=== PATIENT | male | born 1960 | race Caucasian/White ===

== ENCOUNTER → 2017-06-23 | Outpatient (CLI) | payer BC ==
[~2017-06-23] MED LIST: BUPIVACAINE MPF 0.25% 10 ML VIAL. ONE; COLC1TAB PO; CYCL10TA2 PO; IOHEXOL 180 MG/ML 10 ML VIAL. ONE; PANT20TA2 PO; TRAM50TA PO; ZOLP5TAB PO; methylPREDNISolone ACETATE 40 MG/ML VIAL. ONE; methylPREDNISolone ACETATE 80 MG/ML VIAL. ONE
--- NOTE | 2017-06-23 18:20 | PAIN ---
DATE OF SERVICE: 06/23/2017 CHIEF COMPLAINT: Low back pain. HISTORY OF PRESENT ILLNESS: This is a 57-year-old male with history of pain in the low back bilaterally for about 7 years. The patient reports that over the past 5 years, it has been much worse and over the last 6 months or so, it is becoming much more noticeable and annoying with the pain in the low back bilaterally, not radiating to lower extremity significantly but in both of the sides of low back, right essentially equal to left. Twisting makes his legs feel weak, but he has not had any falls or any loss of motor function. The patient is on his feet most of his day, lifting items at his job, working and he is wearing a back brace to do so. The patient reports the pain is constant, sharp, throbbing, stabbing, shooting, radiating into the legs occasionally, but mostly in the low back. The patient reports it awakens him from sleep about twice a night, does not affect her bowel or bladder control, but does affect his ability to walk, not using any assistive devices, however, besides the low back brace, which he feels does help him to some extent. The patient has had some physical therapy and exercise in the past, doing exercises currently, also had epidural shots x 3 in an outside facility in 2014, which seemed to help initially, but did not last for more than about a month. The patient reports no loss of motor function, significant fatigability with his back and his legs when he has been on his feet working. The patient rates his disability rating from 0 to 10, 10 being the worst; a 10 with family and home responsibilities, recreation, social activity, occupation and sexual behavior; 5 with self-care and 5 with life support activities. The patient has tried tramadol, which helps, but only a small amount about 10%; also [id number] ibuprofen and Tylenol, which also helps but only very minimally. The patient did have an MRI scan of the lumbar spine showing mild spinal canal stenosis at L1-L2 secondary to disk herniation, but multilevel disk disease and facet arthrosis resulting in multilevel variable lateral recess and neural foraminal stenosis, most significantly at L4-L5 and L5-S1. The patient reports no loss of motor function, but again fatigability with lower extremities, mild but again worse with low back twisting and extension, most notably. PAST MEDICAL HISTORY: Significant for hearing loss, anemia, blood transfusions, gastroesophageal reflux, arthritis, cancers, polyps. PREVIOUS SURGERY: Include right rotator cuff repair in 2010. CURRENT MEDICATIONS: Include Protonix, Ambien, tramadol, medication for gout he is unsure the name, cyclobenzaprine. ALLERGIES: The patient has no known drug allergies. FAMILY HISTORY: Significant for colon cancer. SOCIAL HISTORY: The patient does not smoke, drinks alcohol about one 6-pack of beer every 2-3 days. 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 Reports he wears his back brace at work, which he feels does help. REVIEW OF SYSTEMS: The patient's review of systems is positive for those items mentioned in history of present illness. All systems were reviewed and otherwise negative. It is complete, full and well documented on the patient's chart. PHYSICAL EXAMINATION: VITAL SIGNS: Today, blood pressure is 156/111, pulse 121, respirations 18, temperature 98.2 degrees Fahrenheit, height is 5 feet 11 inches and weight is 190 pounds. GENERAL: The patient is awake, alert, oriented, appropriate, very pleasant demeanor. HEENT: Head shows normocephalic, atraumatic. Extraocular movements are intact, symmetrical. Oral cavity, mucous membranes are moist and pink. Dentition is intact. NECK: Shows anterior throat supple without palpable lymphadenopathy noted. Swallow reflex is symmetrical. CHEST: Shows normal on inspection. Breath sounds clear to auscultation bilaterally. HEART: Shows S1 and S2 clear. ABDOMEN: Soft, nontender, nondistended. No palpable organomegaly is noted. No rebound or guarding demonstrated. BACK: Shows spine grossly in the midline. Normal appearing thoracic kyphosis and lumbar lordotic curvature. No previous bruises, lesions, rashes or scars are noted. Lumbar paraspinous musculature is symmetrical on inspection with palpation shows moderate tenderness in the middle and lower distribution of paraspinous muscles, essentially equally right and left. No tenderness over the spinous processes. No tenderness over the sacrum or sacroiliac regions. The patient's back shows good rotational motion, but tenderness with right and left lateral rotation at 10 degrees, but he has performed full extension causes significant pain in the low back, mainly in the inferior aspect of the lumbar distribution, but forward flexion relieves this to some extent, but flexing forward past 45 degrees caused increased pain in the base of the low back with a stretching sensation as well. LOWER EXTREMITIES: Show deep tendon reflexes 2+ in the patellar, 1+ tendo calcaneus tendons are equal. Motor exam is strong with 5/5 dorsiflexion, extension, quadriceps and hamstring flexion equal and symmetrical. Peripheral pulses are 1+ posterior tibial and dorsalis pedis pulses. Straight leg raise noted to be negative bilaterally for reproduction of any radicular symptoms. Gaenslen's and Christopher's maneuvers are negative bilaterally as well. The patient is able to stand, stand on his toes without difficulty or loss of balance, walks with a normal appearing gait for short distance without any assistive devices. IMPRESSION: 1. This is a 57-year-old male with long history about 6 years, increasing in the low back pain with some rotational exacerbations as well as weightbearing exacerbations. 2. MRI scan of lumbar spine as noted. 3. Arthritis. 4. History of gastrointestinal bleed. PLAN: Options were discussed with the patient including conservative medical management, physical therapy, interventional techniques and he elected to proceed with interventional techniques. We discussed lumbar facet joint injections using description as well as anatomical models to describe the procedure. The patient would like to proceed with this. Risks were then discussed including, but not limited to bleeding, infection, possibility of epidural hematoma, subsequent neurologic compromise, dural punctures, headaches, spinal cord and/or nerve damage, side effects of steroid medication and poor results regarding pain control. The patient understands and wishes to proceed. The patient will return to clinic in approximately 2 weeks for followup. He was counseled on return appointment, activity level and side effects to be aware of. DIAGNOSIS: Low back pain with lumbar spondylosis and lumbosacral spondylosis. PROCEDURE: Bilateral L4-L5 and L5-S1 facet joint injections with fluoroscopic guidance under sterile prep and drape using local anesthetic. MEDICATIONS INJECTED: A total of 4 mL of 0.25% bupivacaine, total of 120 mg Depo-Medrol and 4 mL of Isovue for contrast. CONDITION AT DISCHARGE: Stable. The patient tolerated procedure well, had no complications. The patient is encouraged to increase his activity as tolerated. We will follow up in approximately 2 weeks as scheduled. Also discussed his blood pressure was high for several readings today and he wound followup for this with his primary care physician as well. AMANDO TOAVR MD DR: SUGAR/keily JOB#: [id number] / [id number] DOM [place]
== END | disposition home or self-care (01) ==
LOC: PNCL 07:36
PROVIDERS: ATTEND Anesthesiology
DX: M47.816 Spondylosis without myelopathy or radiculopathy, lumbar region (principal); M19.91 Primary osteoarthritis, unspecified site
CPT/HCPCS: 64493; 64494; J1030; J1040; J3490

== ENCOUNTER → 2017-07-07 | Outpatient (CLI) | payer BC ==
[~2017-07-07] MED LIST changes: +TIZA4CAP3 PO
--- NOTE | 2017-07-07 10:12 | PAIN ---
DATE OF SERVICE: 07/07/2017 DATE OF SERVICE: 07/07/2017 DIAGNOSES: Low back pain with lumbar spondylosis and lumbosacral spondylosis. HISTORY OF PRESENT ILLNESS: The patient is a 57-year-old male who returns for followup status post bilateral facet joint injections x 1. The patient reports about 50% improvement for the first few days, but the pain came back after about 4 or 5 days in the low back bilaterally, somewhat worse on the left than the right, but present bilaterally in the low back itself, but not any radiation into the lower extremities at this time, but significant pain with walking, standing, change in positions, even lying down. It is awakening him from sleep about every 4 to 5 hours. The patient reports the pain as 10 on a scale of 10 at its worst, is an 8 on average and an 8 at its least. The patient reports it is stabbing, shooting, sharp, constant becoming more severe across the low back, again more on the left side, worse with working. He is wearing a back brace when he is working and he is on his feet quite a bit through his working day, which seems to exacerbate the pain. The patient reports no new motor or sensory deficits, no new bowel or bladder incontinence or other complaints. PHYSICAL EXAMINATION: VITAL SIGNS: The patient's blood pressure 154/111, pulse is 130, respirations are 20, temperature 98.2 degrees Fahrenheit, weight is 187 pounds. GENERAL: The patient is awake, alert, oriented, appropriate, very pleasant demeanor. HEENT: Head shows normocephalic, atraumatic. Extraocular movements are intact, symmetrical. Oral cavity, mucous membranes are moist and pink. Dentition is intact. NECK: Shows anterior throat supple without palpable lymphadenopathy noted. Swallow reflex is symmetrical. CHEST: Shows normal on inspection. Breath sounds are clear to auscultation bilaterally. HEART: Shows S1 and S2 clear, tachy, but no murmurs auscultated. ABDOMEN: Soft, nontender, nondistended. No palpable organomegaly is noted. BACK: Shows spine grossly in midline. Lumbar paraspinous muscle shows symmetrical on inspection, with palpation shows some moderate tenderness bilaterally, somewhat worse on the left than right, but only diffusely in the lumbar paraspinous muscles without radiation. The patient does show good rotational motion of the lumbar spine with some tenderness with extension as well as left greater than right lateral rotation. Lower extremities show deep tendon reflexes at 2+ plus in the patellar, 1+ tendo-calcaneus tendons. Motor exam is strong with 5/5 dorsiflexion, extension, quadriceps and hamstring flexion and equal. Peripheral pulses are 1+ posterior tibial. No peripheral edema is noted. PLAN: Options were discussed with the patient and the patient's old chart was reviewed as his current medication regimen and updated. Current review of systems updated today as well. We will proceed with bilateral L4-L5 and L5-S1 facet joint injections with fluoroscopic guidance today. Risks were again discussed including, but not limited to bleeding, infection, possibility of epidural hematoma and subsequent neurologic compromise, dural puncture, headaches, spinal cord and/or nerve damage, side effects of steroid medication and poor results regarding pain control. The patient understands and wishes to proceed. The patient will return to clinic in approximately 2 weeks for followup. He was counseled to return appointment, activity level and side effects to be aware of. DIAGNOSIS: Spondylosis, lumbar and lumbosacral. PROCEDURE: Bilateral L4-L5 and L5-S1 facet joint injections with fluoroscopic guidance under sterile prep and drape using local anesthetic. MEDICATIONS INJECTED: A total of 120 mg Depo-Medrol plus total of 4 mL of 0.25% bupivacaine, total of 2 mL of Isovue for contrast. CONDITION AT DISCHARGE: Stable. The patient tolerated the procedure well, had no complications. AMANDO TOVAR MD DR: SUGAR/keily JOB#: [id number] / [id number]
== END | disposition home or self-care (01) ==
LOC: PNCL 07:47
PROVIDERS: ATTEND Anesthesiology
DX: M47.816 Spondylosis without myelopathy or radiculopathy, lumbar region (principal)
CPT/HCPCS: 64493; 64494; J1030; J1040; J3490

== ENCOUNTER → 2017-07-21 | Outpatient (CLI) | payer BC ==
[~2017-07-21] MED LIST changes: -BUPIVACAINE MPF 0.25% 10 ML VIAL. ONE; -IOHEXOL 180 MG/ML 10 ML VIAL. ONE; -methylPREDNISolone ACETATE 40 MG/ML VIAL. ONE; -methylPREDNISolone ACETATE 80 MG/ML VIAL. ONE
--- NOTE | 2017-07-21 11:28 | PAIN ---
DATE OF SERVICE: 07/21/2017 DIAGNOSES: Low back pain with lumbar and lumbosacral spondylosis. HISTORY OF PRESENT ILLNESS: The patient is a 57-year-old male who returns for followup status post lumbar facet joint injections x 2, bilateral L4-L5 and L5-S1. The patient reports about 80% improvement initially from the injections on his last episode. The patient reports now, it is about a 50% improved in overall, but still doing well after the injections, which was 07/07/2017 and the one was performed on 06/23/2017. The patient has done well with each of these and is very pleased. He is getting better sleep at night. Pain is much less with walking and standing. He can cross his legs, reach down and put his shoes on which is a big improvement, sleeping better once again, increasing activity with greater ease and comfort. He reports pain across the low back, it is a 4 on a scale of 10 at its worst and at its least and at its average and a 4 today. The patient reports tingling, stabbing, aching, sharp, dull with some shooting pain occasionally, but mostly just in the low back itself, worse with exacerbation, standing, walking, changing positions, rotating the spine, right equal to left essentially and with extension. The patient reports no new motor or sensory deficits, no new bowel or bladder incontinence, but doing much better. He is quite pleased with his progress thus far and would try some Zanaflex after the last visit, he reports this helps to a minor extent as well. PHYSICAL EXAMINATION: VITAL SIGNS: Today, the patient's blood pressure 156/114, pulse is 80, respirations are 20, temperature 98.3 degrees Fahrenheit. Weight is 190 pounds. GENERAL: The patient is awake, alert, oriented, appropriate, very pleasant demeanor. HEENT: Shows normocephalic, atraumatic. Extraocular movements intact, symmetrical. Oral cavity, mucous membranes are moist and pink. Dentition is intact. NECK: Shows anterior throat supple without palpable lymphadenopathy noted. Swallow reflex is symmetrical. CHEST: Shows normal on inspection. Breath sounds are clear to auscultation bilaterally. HEART: Shows S1 and S2 clear. No murmurs auscultated. ABDOMEN: Soft, nontender, nondistended. No palpable organomegaly. No rebound or guarding demonstrated. BACK: Shows spine grossly midline. Normal appearing thoracic kyphosis and lumbar lordotic curvature. Lumbar paraspinous musculature shows symmetrical on inspection with palpation shows some moderate tenderness in the middle and lower distribution of paraspinous distribution, but only moderately bilaterally. The patient shows some minor tenderness with rotational motion greater than 10 degrees right and left as well as extension greater than 10 degrees and forward flexion at 45 degrees with only minor pain reported with forward flexion and extension shows some moderate pain bilaterally in the low back, but without radiation. The patient's lower extremities show deep tendon reflexes 2+ in the patellar, 1+ tendo calcaneus tendons. Motor exam is strong with 5/5 dorsiflexion, extension, quadriceps and hamstring flexion and symmetrical bilaterally. Peripheral pulses are 1+ posterior tibia. No peripheral edema is noted. The patient is able to stand, stand on his toes, walks with a normal appearing gait, is not using any assistive devices. Options were discussed with the patient and the patient's old chart was reviewed as his current medication regimen and updated. Current review of systems is updated today as well and we will preauthorize the patient for radiofrequency ablation of the L4-L5 and L5-S1 levels bilaterally as the patient has done very well with 2 sets now of facet joint injections with very good results. The patient would like to proceed with this. We will get this preauthorized for the patient and have him return in about 1 week to plan on radiofrequency ablation at that time. AMANDO TOVAR MD DR: SUGAR/keily JOB#: [id number] / [id number]
== END | disposition home or self-care (01) ==
LOC: PNCL 07:47
PROVIDERS: ATTEND Anesthesiology
DX: M47.817 Spondylosis without myelopathy or radiculopathy, lumbosacral region (principal)
CPT/HCPCS: 99212

== ENCOUNTER → 2017-08-04 | Outpatient (CLI) | payer BC ==
[~2017-08-04] MED LIST changes: +BUPIVACAINE MPF 0.25% 10 ML VIAL. ONE; +LIDOCAINE 1% PF 2 ML VIAL. ONE; +LIDOCAINE 2% PF Vial for OR 5 ML VIAL. ONE; +methylPREDNISolone ACETATE 40 MG/ML VIAL. ONE; +methylPREDNISolone ACETATE 80 MG/ML VIAL. ONE
--- NOTE | 2017-08-05 01:19 | PAIN ---
DATE OF SERVICE: 08/04/2017 PROGRESS NOTE FOR PAIN CLINIC DIAGNOSIS: Low back pain with lumbar and lumbosacral spondylosis. HISTORY OF PRESENT ILLNESS: The patient is a 57-year-old male who returns for followup status post previous lumbar facet joint injections at L4-L5 and L5-S1 bilaterally with at least 80% improvement with each one of the injections most recently was on 07/21/2017. The patient reports he still has about 50% improvement overall lasting after his last injection. The patient reports still pain in the low back bilaterally, left essentially equal to right without significant radiation to the lower extremities. At this time, the patient reports pain is at 5 on a scale of 10 at its worse, at its least and at its average and is a 5 on a scale of 10 today. It is worse with walking, standing and changing positions. He has been on his feet a lot at work over the last week or two with increased pain with activities at work, but not limiting him to significant amounts with his activities and performing his work duties. The patient reports it is aching pain, it is tight, also some radiating to the hips, but mostly in the low back. It can be sharp and stabbing at times, mostly dull and aching and a tight feeling across the low back. The patient reports no new motor or sensory deficits, no new bowel or bladder incontinence. Reports awaking him from sleep, but he sleeps about 4 to 5 hours at a time before it awakens him. He can usually reposition and get back to sleep. PHYSICAL EXAMINATION: VITAL SIGNS: Today, the patient's blood pressure is 175/126, pulse 138, respirations 18, temperature 98.2 degrees Fahrenheit. The patient's height is 5 feet 11 inches and weight is 187 pounds. GENERAL: The patient is awake, alert, oriented, appropriate and very pleasant demeanor. HEENT: Head shows normocephalic and atraumatic. Extraocular movements are intact and symmetrical. Oral cavity: Mucous membranes are moist and pink. Dentition is intact. NECK: Shows anterior throat supple without palpable lymphadenopathy noted. Swallow reflex is symmetrical. CHEST: Shows normal on inspection. Breath sounds clear to auscultation bilaterally. HEART: Shows S1 and S2 clear. No murmurs auscultated. ABDOMEN: Soft, nontender and nondistended. No palpable organomegaly is noted. No rebound or guarding demonstrated. BACK: The patient's back shows spine grossly in the midline. Normal appearing thoracic kyphosis and lumbar lordotic curvature. Lumbar paraspinous muscle shows symmetrical on inspection with palpation shows some [id number] tenderness only diffusely in the low lumbar distribution with deep palpation, but only diffusely without radiation. No tenderness over the sacrum or sacroiliac regions. The patient has good rotational motion with some tenderness with extension, but not with forward flexion. Right and left lateral rotation shows mild to moderate tenderness in each right and left low back with rotation to that respective side. EXTREMITIES: Lower extremities show deep tendon reflexes at 2+ in the patellar, 1+ tendo-calcaneus tendons are equal. Motor exam is strong with dorsiflexion and extension rated at 5/5 as is quadriceps and hamstring flexion without deficit. Peripheral pulses are 2+ bilaterally. No peripheral edema is noted. No clubbing or cyanosis. Options were discussed with the patient, the patient's old chart was reviewed as his current medication regimen updated. Current review of systems updated today as well. We will proceed with a radiofrequency ablation of the bilateral medial branches at the L4-L5 and L5-S1 levels with C-arm fluoroscopic guidance. Risks were discussed including but not limited to bleeding, infection, possibility of epidural hematoma and subsequent neurological compromise, dural punctures, headaches, spinal cord and/or nerve damage, side effects of steroid medication, exposure to fluoroscopy as well as damage from the radiofrequency ablation to surrounding structures, possible motor nerve damage and paralysis as well as poor results regarding pain control. The patient understands and wished to proceed. The patient will return to clinic in approximately 2 weeks for followup. She was counseled to return appointment, activity level and side effects to be aware of. DIAGNOSIS: Lumbar and lumbosacral spondylosis with low back pain. PROCEDURE: Bilateral L4-L5 and L5-S1 radiofrequency ablation medial branches at the facet joints under sterile prep and drape using local anesthetic. MEDICATIONS INJECTED: A total of 120 mg Depo-Medrol plus total of 6 mL of 0.25% bupivacaine after radiofrequency ablation, 1 mL at each level after negative aspiration and also a total of 6 mL of 2% lidocaine after motor testing for the radiofrequency ablation and prior to radiofrequency ablation start one at each level after negative aspiration as well. CONDITION AT DISCHARGE: Stable. The patient tolerated the procedure well and had no complications. AMANDO TOVAR MD DR: Benson JOB#: [id number] / [id number]
== END | disposition home or self-care (01) ==
LOC: PNCL 12:52
PROVIDERS: ATTEND Anesthesiology
DX: M47.816 Spondylosis without myelopathy or radiculopathy, lumbar region (principal)
CPT/HCPCS: 64635; 64636; J1030; J1040; J3490; J2001